=== PATIENT | female | born 1975 | race African-American/Black ===

== ENCOUNTER 2024-07-07 23:08 | Emergency (ER) | payer SELFPAY ==
[2024-07-07 23:21] VITALS: PULSE 92; RESP 16; O2SAT 100
== END 2024-07-08 00:32 | disposition left against medical advice (07) ==
LOC: ER 23:08
DX: R07.89 Other chest pain (principal); Z53.21 Procedure and treatment not carried out due to patient leaving prior to being seen by health care provider